=== PATIENT | female | born 1955 | race Caucasian/White ===

== ENCOUNTER 2023-02-28 21:06 | Inpatient (IN) | payer MEDICARE, MEDICAID, SELFPAY ==
[2023-02-28 21:30] VITALS: BP 110/69; PULSE 66; RESP 16; TEMP 36.3; O2SAT 97
[2023-02-28 22:18] VITALS: BMI 20.7
[2023-02-28] MEDS: oxyCODONE HCl Immed Release 5 MG TABLET 20 MG PO (23:05)
[2023-02-28] MEDS: traZODone HCL 50 MG TABLET PO (23:05)
--- NOTE | 2023-02-28 23:54 | PC.ADMIT ---
Pt is a hospital to hospital transfer from [facility]. She arrived on unit via stretcher 02/28/23 at 2115 and signed a CV. Pt was A&O(3), neat in appearance, pleasant and made good eye contact. When asked what brought her here, Pt was reluctant to speak at first but then described problems with her neighbors that were delusional content. She lives in disabled housing and says one couple, former [employer], are not disabled and are the cause of suspicious activity in her kitchen water boils in one cup but not in another . Pt was brought to [facility] d/t calling 911 and others with complaints about her sink. She had delusions that there was a computer or machine in it. Pt has Fibromyalgia and Small Fiber Neuropathy. She was fixated on her pain medications. Pt denies SI/HI. She is a fall risk. Pt stated she has a visiting nurse twice a day. She stated she needs someone to help with house keeping and grocery shopping. pt was given PRN Oxycodone and Trazodone and is sleeping soundly at this time.
[2023-03-01 08:12] VITALS: BP 125/71; PULSE 115; RESP 26; TEMP 36.5; O2SAT 99
[2023-03-01] MEDS: Gabapentin 600 MG TABLET PO ×4 (08:24→22:35)
[2023-03-01] MEDS: Omeprazole 20 MG CAPSULE.DR PO (08:24)
[2023-03-01] MEDS: Morphine Sulfate ER 30 MG TABLET.ER PO ×4 (08:24→22:35)
[2023-03-01] MEDS: DULoxetine HCl 30 MG CAPSULE.DR PO ×2 (08:24→22:36)
[2023-03-01] MEDS: Cyanocobalamin (Vitamin B-12) 100 MCG TABLET PO (08:24)
[2023-03-01] MEDS: oxyCODONE HCl Immed Release 5 MG TABLET 20 MG PO ×4 (08:26→22:36)
[2023-03-01 08:31] LABS: Alanine Aminotransferase 12 U/L (0-31); Albumin Level 4.3 g/dL (3.5-5.0); Alkaline Phosphatase 75 U/L (39-117); Anion Gap 15 (12-20); Aspartate Amino Transferase 15 U/L (5-31); Bilirubin Total 0.5 mg/dL (0.0-1.0); Blood Urea Nitrogen 8 mg/dL (9-16); Calcium 10.1 mg/dL (8.4-10.2); Carbon Dioxide 22 mmol/L (22-29); Chloride 111 mmol/L (96-108); Cholesterol 205 mg/dL; Creatinine Clr Calc Pharmacy 55.2; Estimated Glomerular Filt Rate > 60; Glucose Fasting 128 mg/dL (60-99); HDL Cholesterol 71 mg/dL; LDL Cholesterol Calculated 119 mg/dl; Sodium 144 mmol/L (135-145); Total Protein 6.9 g/dL (6.5-8.0); Triglycerides 75 mg/dL
--- NOTE | 2023-03-01 11:56 | P.HPPS_ITS ---
[facility] Date of Service: 03/01/23 Chief Complaint: Delusional Disorder Sources of Information: patient interviewed, chart reviewed and crisis/core team assessment reviewed HPI Subjective Notes: Neri Warning and Conditional Voluntary Narrative: The patient is a 67-year-old female, born and raised in [place], , mother of adult children, living alone in her own apartment with good social support referred from [facility] for psychosis. According to the crisis assessment, the patient had been calling 911 and other several institutions stating that her apartment has machines and talk things the other hurting her. She was assessed in the emergency room, medically cleared and assessed by the crisis team and transferring to this facility for psychiatric stabilization. On arrival, the patient signed a conditional voluntary and she was willing to follow treatment here. On intake, the patient adamantly denies auditory hallucinations and she states that she has been living on her apartment for the last 17 years. She stated that the building has changed ownership and she is sure that the new order wants to kicked her out. The patient have had several stressors in the last year such as the suicide of her , losing a child and other stressors. Also the patient has several medical problems such as fibromyalgia and chronic pain and she has Detrol headache opiate dependence. She was able to articulate in a circumstantial manner, how she is sure that she has been targeted to make her feel sick. She was able to contract for safety in the facility she, she adamantly denies suicidal ideation and she was able to provide us permission to contact her son. Understood Neri warning and she is willing to follow treatment. At the moment of the intake, the patient refused any changes in her current medications, according to her, she had been taking this huge amount of opioids and mood stabilizers for years. Past Psychiatric History: The patient follows an outpatient therapist but apparently she has prior admissions into the hospital for suicidality in the context of her losses. The patient refused to elaborate in detail. Medical Evaluation Reviewed: Yes PMF Narrative: Fibromyalgia Pre diabetes Small fiber neuropathy Family History: She had a daughter that committed suicide at age of 29, also her committed suicide. Social History: She is a , she was born and raised in [place] immigrated to the [place] and she had work when she was younger. She is mother of several children, she lives alone independently and she has good social support by the family around her. Substance History: Denies Trauma History: Denies Diagnostics Vital Signs (24Hr): Vital Signs - 24 hr 02/28/23 21:30 03/01/23 08:12 Temperature 97.4 F 97.7 F Pulse Rate 66 115 H Respiratory Rate 16 26 H Blood Pressure 110/69 125/71 Pulse Oximetry 97 99 Oxygen Delivery Method Room Air Room Air BMI result Body Mass Index 20.7 Labs 03/01/23 08:04 Labs: Laboratory Results - last 48 hr 03/01/23 08:04 Sodium 144 Potassium 4.0 Chloride 111 H Carbon Dioxide 22 Anion Gap 15 BUN 8 L Creatinine 0.71 Estim Creat Clear Calc 55.2 Estimated GFR > 60 Fasting Glucose 128 H Calcium 10.1 Total Bilirubin 0.5 AST 15 ALT 12 Alkaline Phosphatase 75 Total Protein 6.9 Albumin 4.3 Triglycerides 75 Cholesterol 205 LDL Cholesterol, Calc 119 HDL Cholesterol 71 Meds/Allergies Meds Home Medications Medication Instructions Recorded Confirmed Type cyanocobalamin (vitamin B-12) 100 mcg DAILY 02/28/23 02/28/23 History duloxetine 30 mg capsule,delayed 30 mg PO BID 02/28/23 02/28/23 History release gabapentin 600 mg tablet 600 mg PO 6XD 02/28/23 03/01/23 History hydrocortisone 2.5 % topical cream topical BID 02/28/23 History morphine 30 mg tablet,extended 30 mg PO Q6H 02/28/23 02/28/23 History release oxycodone 20 mg tablet 20 mg PO Q6-8H PRN Pain, Severe 02/28/23 03/01/23 History pantoprazole 40 mg tablet,delayed 40 mg PO DAILY 02/28/23 02/28/23 History release Allergies Allergies Allergy/AdvReac Type Severity Reaction Status Date / Time No Known Allergies Allergy Verified 02/28/23 22:19 Mental Status Exam Mental Status Exam Patient Appearance: Well Grooomed and Appropriate Patient Orientation: Person and Situation Level of Consciousness: Awake and Appropriate Patient Behavior: Appropriate and Cooperative Mood Description: Calm Affect Description: Constricted Patient Cognition Impaired: Yes Ability to Follow Directions: Good Speech Pattern: Clear Hallucinations: None Delusions: Not Present Thought Process: Linear Thought Content: positive for Intact Judgement: Fair Assessment & Plan Assessment & Plan (1) Delusional disorder: Status: Acute Code(s): F22 - Delusional disorders (2) Opiate dependence: Status: Acute Code(s): F11.20 - Opioid dependence, uncomplicated (3) Fibromyalgia: Status: Acute Code(s): M79.7 - Fibromyalgia Plan The patient is an elderly female, from [place], with good social support, with a prior history of dysphoria and prior admissions into the hospital for mood disorder, admitted for the elusive thought process regarding her apartment and the landlord that wants to evict her. Plan 1. Gather collateral information. 2. Continue with pain management. Opioids were confirmed by the pharmacy she has been taking this for several years. 3. Follow-up with medical workout. 4. Reassessment with results. 5. We will not start an antipsychotic at this moment until we confirm if her story is delusional Patient educated on: diagnosis Guardian/Caregiver educated on: therapeutic strategies Reason for continued inpatient stay Substantial Risk for: inability to function, rapid decompensation and med/psych decompensation Statement Statement: I have reviewed the history and physical and performed a pertinent examination on my patient. No changes have occurred unless specified. If the History and Physical was not performed prior to admission, the Hospitalist's service will be consulted for completing the admission physical. Time Spent With Patient Time: Total time managing care of this patient today _45___ minutes.
--- NOTE | 2023-03-01 15:40 | P.CONHOSP_ITS ---
History of Present Illness Data of Consult Service Date: 03/01/23 Primary Care Provider: Unknown Physician HPI Reason for consult: Admission H&P Pt is a 67-year-old female with a PMH significant for?fibromyalgia and small fiber neuropathy who is admitted to [facility] for paranoia, believing there was a machine or computer in her sink and repeatedly calling 911 about it. Medical consult for admission H&P. Pt primarily complains of her small fiber neuropathy which she describes as being sensitive to everything, including her environment. Pt reports her neruopathy causes constant burning pain for which she is on chronic opioids for the past 20-25 years. Also complains of chronic back pain. No acute medical complaints. Review of Systems Review of Systems: Chronic back pain Chronic neuropathic pain Denies all other acute medical complaints PMFSH Social History Household Members: None Housing: Apartment Do you presently have visiting nurse or other home services: Yes (2 visits qday) Patient Tobacco Use Status: Never used Tobacco Smoked in Last 30 Days: No e-Cigarette/Vaping Use: Never Used Patient Interested in Nicotine Replacement: No Patient Given Instructions on How to Stop Smoking: No Second Hand Smoke Exposure: No Use of substances other than those prescribed or required for medical reasons: No Currently Displaying Signs/Symptoms of Drug Intoxication Withdrawal: No Any prior treatment program specific to substance use: No Have you been hit, kicked, punched, or otherwise hurt by someone within the past year? If so, by whom?: No Do you feel safe in your current relationship?: No Is there a partner from a previous relationship who is making you feel unsafe now?: No Are you made to feel afraid or neglected: No Advance Directives: No Advance Directives Information Provided: No Do you have thoughts of harming others: None Do you have a plan to hurt others: No Plan Recently lost weight without trying: No Nutrition Risks: No Nutritional Risk Patient : No : No Poor oral hygiene: No service: No Sexual orientation: Straight/Heterosexual Meds Allergies Allergy/AdvReac Type Severity Reaction Status Date / Time No Known Allergies Allergy Verified 02/28/23 22:19 Active Medications: Current Medications Acetaminophen (Acetaminophen 325 Mg Tablet) 650 mg PO Q6H PRN PRN Reason: Headache/Pain Mild Scale (1-3) Al Hydroxide/Mg Hydroxide (Magnesium Hydrox/Alum Hydrox 30 Ml Oral.Susp) 30 ml PO Q6H PRN PRN Reason: Heartburn/Nausea Cyanocobalamin (Cyanocobalamin (Vitamin B-12) 100 Mcg Tablet) 100 mcg PO DAILY [facility] Last Admin: 03/01/23 08:24 Dose: 100 mcg Duloxetine HCl (Duloxetine Hcl 30 Mg Capsule.) 30 mg PO BID [facility] Last Admin: 03/01/23 08:24 Dose: 30 mg Gabapentin (Gabapentin 600 Mg Tablet) 600 mg PO Q6H [facility] Hydroxyzine HCl (Hydroxyzine Hcl 25 Mg Tablet) 25 mg PO Q6H PRN PRN Reason: Anxiety Magnesium Hydroxide (Milk Of Magnesia 30 Ml Oral.Susp) 30 ml PO DAILY PRN PRN Reason: Constipation Morphine Sulfate (Morphine Sulfate Er 30 Mg Tablet.Er) 30 mg PO Q6H [facility] Last Admin: 03/01/23 12:06 Dose: 30 mg Omeprazole (Omeprazole 20 Mg Capsule.) 20 mg PO DAILY [facility] Last Admin: 03/01/23 08:24 Dose: 20 mg Oxycodone HCl (Oxycodone Hcl Immed Release 5 Mg Tablet) 20 mg PO Q6H PRN PRN Reason: Pain, Severe Last Admin: 03/01/23 13:21 Dose: 20 mg Trazodone HCl (Trazodone Hcl 50 Mg Tablet) 50 mg PO BEDTIME MRX1 PRN PRN Reason: Insomnia Last Admin: 02/28/23 23:05 Dose: 50 mg Home Medications Medication Instructions Recorded Confirmed Last Taken Type cyanocobalamin (vitamin B-12) 100 mcg DAILY 02/28/23 02/28/23 Unknown History duloxetine 30 mg capsule,delayed 30 mg PO BID 02/28/23 02/28/23 02/28/23 08:36 History release gabapentin 600 mg tablet 600 mg PO 6XD 02/28/23 03/01/23 03/01/23 History hydrocortisone 2.5 % topical cream topical BID 02/28/23 Unknown History morphine 30 mg tablet,extended 30 mg PO Q6H 02/28/23 02/28/23 02/28/23 17:35 History release oxycodone 20 mg tablet 20 mg PO Q6-8H PRN Pain, Severe 02/28/23 03/01/23 03/01/23 History pantoprazole 40 mg tablet,delayed 40 mg PO DAILY 02/28/23 02/28/23 02/28/23 05:55 History release Physical Exam Vital Signs and Narrative: Vital Signs: Last Vital Signs Temp 97.7 F 03/01/23 08:12 Pulse 115 H 03/01/23 08:12 Resp 26 H 03/01/23 08:12 BP 125/71 03/01/23 08:12 Pulse Ox 99 03/01/23 08:12 O2 Del Method Room Air 03/01/23 08:12 BMI result Body Mass Index 20.7 General: AOx3, no acute distress Resp: CTA bilaterally CVS: S1, S2, RRR GI: +BS, NT, no distention Skin: No rash Neuro: Cranial nerves II-XII grossly intact bilaterally. Motor grossly intact bilaterally. Left-sided decrease to sensation. Extremities: No edema Psych: Appropriate affect Results Labs 03/01/23 08:04 Labs: Laboratory Results - last 24 hr 03/01/23 08:04 Anion Gap 15 Estim Creat Clear Calc 55.2 Estimated GFR > 60 Fasting Glucose 128 H Calcium 10.1 Total Bilirubin 0.5 AST 15 ALT 12 Alkaline Phosphatase 75 Total Protein 6.9 Albumin 4.3 Triglycerides 75 Cholesterol 205 LDL Cholesterol, Calc 119 HDL Cholesterol 71 Assessment and Plan (1) Routine history and physical examination of adult: Status: Acute Plan Pt is a 67-year-old female with a PMH significant for?fibromyalgia and small fiber neuropathy who is admitted to [facility] for paranoia, believing there was a machine or computer in her sink and repeatedly calling 911 about it. Medical consult for admission H&P. Mood disorder Plan as per psychiatry Fibromyalgia/small fiber neuropathy Continue gabapentin Continue chronic opioids GERD Continue PPI Thank you for allowing us to participate in the care of this patient. Signing off at this time. Please let us know if there are any acute complaints or questions. Time Spent With Patient Time: Total time managing care of this patient today ____ minutes.
[2023-03-01 18:00] VITALS: BP 108/56; PULSE 100; RESP 14; TEMP 36.9; O2SAT 95
[2023-03-02] MEDS: Gabapentin 600 MG TABLET PO ×4 (04:51→22:46)
[2023-03-02] MEDS: Morphine Sulfate ER 30 MG TABLET.ER PO ×4 (04:51→22:45)
[2023-03-02] MEDS: oxyCODONE HCl Immed Release 5 MG TABLET 20 MG PO ×4 (06:08→22:42)
[2023-03-02 08:40] VITALS: BP 149/75; PULSE 116; RESP 18; TEMP 36.8; O2SAT 97
[2023-03-02] MEDS: DULoxetine HCl 30 MG CAPSULE.DR PO (08:44)
[2023-03-02] MEDS: Cyanocobalamin (Vitamin B-12) 100 MCG TABLET PO (08:44)
[2023-03-02] MEDS: Omeprazole 20 MG CAPSULE.DR PO (08:44)
[2023-03-02 18:00] VITALS: BP 108/80; PULSE 86; RESP 16; TEMP 36.3; O2SAT 96
--- NOTE | 2023-03-02 18:12 | P.PNPSI_ITS ---
Subjective Subjective Date of Service: 03/02/23 Reason For Visit: Delusional Disorder Interim History: Pt seen, discussed with team Active in discussion about her medical issues, small fiber neuropathy, her med regime and what works best for her. Discussed feeling upset that no one was be lieving her concerns about her sink. She reports feeling badly that no one even looked to make sure thing were in working order, just assumed I am crazy . Upset her son does not believe her. Empathized with her room-mate with her situation, stating, that as an older person, they just want to have you put away. Presents as connected to milieu and to peers on the unit. No changes are being made today. Medication Compliance: Yes Side effects from medications: No Attending Groups: Yes Review of Systems Acute medical concerns: No Medical Review of Systems: unchanged Mental Status Exam Mental Status Exam Patient Appearance: Appropriate Patient Orientation: Person, Place and Situation Level of Consciousness: Alert Patient Behavior: Talkative, Cooperative and Good Eye Contact Mood Description: Sad Affect Description: Flat Patient Cognition Impaired: No Ability to Follow Directions: Fair Speech Pattern: Spontaneous Speech Memory Description: Episodic Impaired Delusions: Paranoid Ideation and Present Perceptual Disturbances: Derealization Thought Process: Rumination Thought Content: positive for Perseveration Depressive Symptoms: Unhappiness Judgement: Poor Diagnostics Vital Signs (24Hr): Vital Signs - 24 hr 03/02/23 08:40 Temperature 98.2 F Pulse Rate 116 H Respiratory Rate 18 Blood Pressure 149/75 H Pulse Oximetry 97 Oxygen Delivery Method Room Air BMI result Body Mass Index 20.7 Labs 03/01/23 08:04 Labs: Laboratory Results - last 48 hr 03/01/23 08:04 Sodium 144 Potassium 4.0 Chloride 111 H Carbon Dioxide 22 Anion Gap 15 BUN 8 L Creatinine 0.71 Estim Creat Clear Calc 55.2 Estimated GFR > 60 Fasting Glucose 128 H Calcium 10.1 Total Bilirubin 0.5 AST 15 ALT 12 Alkaline Phosphatase 75 Total Protein 6.9 Albumin 4.3 Triglycerides 75 Cholesterol 205 LDL Cholesterol, Calc 119 HDL Cholesterol 71 Medications Medications Current Medications Acetaminophen (Acetaminophen 325 Mg Tablet) 650 mg PO Q6H PRN PRN Reason: Headache/Pain Mild Scale (1-3) Al Hydroxide/Mg Hydroxide (Magnesium Hydrox/Alum Hydrox 30 Ml Oral.Susp) 30 ml PO Q6H PRN PRN Reason: Heartburn/Nausea Cyanocobalamin (Cyanocobalamin (Vitamin B-12) 100 Mcg Tablet) 100 mcg PO DAILY [facility] Last Admin: 03/02/23 08:44 Dose: 100 mcg Duloxetine HCl (Duloxetine Hcl 30 Mg Capsule.) 30 mg PO BID [facility] Last Admin: 03/02/23 08:44 Dose: 30 mg Gabapentin (Gabapentin 600 Mg Tablet) 600 mg PO Q6H [facility] Last Admin: 03/02/23 17:13 Dose: 600 mg Hydroxyzine HCl (Hydroxyzine Hcl 25 Mg Tablet) 25 mg PO Q6H PRN PRN Reason: Anxiety Magnesium Hydroxide (Milk Of Magnesia 30 Ml Oral.Susp) 30 ml PO DAILY PRN PRN Reason: Constipation Morphine Sulfate (Morphine Sulfate Er 30 Mg Tablet.Er) 30 mg PO Q6H [facility] Last Admin: 03/02/23 17:13 Dose: 30 mg Omeprazole (Omeprazole 20 Mg Capsule.Dr) 20 mg PO DAILY [facility] Last Admin: 03/02/23 08:44 Dose: 20 mg Oxycodone HCl (Oxycodone Hcl Immed Release 5 Mg Tablet) 20 mg PO Q6H PRN PRN Reason: Pain, Severe Last Admin: 03/02/23 17:41 Dose: 20 mg Trazodone HCl (Trazodone Hcl 50 Mg Tablet) 50 mg PO BEDTIME MRX1 PRN PRN Reason: Insomnia Last Admin: 02/28/23 23:05 Dose: 50 mg Allergies Allergies Allergy/AdvReac Type Severity Reaction Status Date / Time No Known Allergies Allergy Verified 02/28/23 22:19 Assessment & Plan Assessment & Plan (1) Delusional disorder: Status: Acute Code(s): F22 - Delusional disorders Assessment and Plan: 03/02/23: Continue current regime and plan of care. (2) Opiate dependence: Status: Acute Code(s): F11.20 - Opioid dependence, uncomplicated Plan Pt is a 67-year-old female with a PMH significant for?fibromyalgia and small fiber neuropathy who is admitted to [facility] for paranoia, believing there was a machine or computer in her sink and repeatedly calling 911 about it. Medical consult for admission H&P. Mood disorder Plan as per psychiatry Fibromyalgia/small fiber neuropathy Continue gabapentin Continue chronic opioids GERD Continue PPI Thank you for allowing us to participate in the care of this patient. Signing off at this time. Please let us know if there are any acute complaints or questions. Reason for continued inpatient stay Substantial Risk for: rapid decompensation Time Spent With Patient Time: Total time managing care of this patient today ____ minutes.
[2023-03-03] MEDS: Morphine Sulfate ER 30 MG TABLET.ER PO ×4 (05:14→22:32)
[2023-03-03] MEDS: Gabapentin 600 MG TABLET PO ×4 (05:15→22:32)
[2023-03-03] MEDS: oxyCODONE HCl Immed Release 5 MG TABLET 20 MG PO ×4 (05:20→22:29)
[2023-03-03 08:00] VITALS: BP 90/64; BP 99/56; PULSE 80; PULSE 84; RESP 20; TEMP 36.8; O2SAT 99
[2023-03-03] MEDS: Omeprazole 20 MG CAPSULE.DR PO (08:02)
[2023-03-03] MEDS: Cyanocobalamin (Vitamin B-12) 100 MCG TABLET PO (08:02)
[2023-03-03] MEDS: DULoxetine HCl 30 MG CAPSULE.DR PO ×2 (08:03→22:31)
--- NOTE | 2023-03-03 13:49 | HO.PSYCHPN ---
Subjective Subjective Date of Service: 03/03/23 Reason For Visit: Delusional Disorder Interim History: Pt seen, discussed with team. Visable in milieu, with room-mate, discussing her current situation Tells team, pain today has increased, was requesting pain mgt regime to be repeated two hours after she received this today. Pt has had two groups of pain meds and appears more comfortable when seen Medication Compliance: Yes Side effects from medications: No Attending Groups: Yes Review of Systems Acute medical concerns: No Medical Review of Systems: unchanged Mental Status Exam Mental Status Exam Patient Appearance: Appropriate Patient Orientation: Person, Place and Situation Level of Consciousness: Alert Patient Behavior: Talkative, Cooperative and Good Eye Contact Mood Description: Sad Affect Description: Flat Patient Cognition Impaired: No Ability to Follow Directions: Fair Speech Pattern: Spontaneous Speech Memory Description: Episodic Impaired Delusions: Paranoid Ideation and Present Perceptual Disturbances: Derealization Thought Process: Rumination Thought Content: positive for Perseveration Depressive Symptoms: Unhappiness Judgement: Poor Diagnostics Vital Signs (24Hr): Vital Signs - 24 hr 03/02/23 18:00 03/03/23 08:00 03/03/23 08:00 Temperature 97.4 F 98.2 F Pulse Rate 86 80 84 Respiratory Rate 16 20 Blood Pressure 108/80 99/56 L 90/64 Pulse Oximetry 96 99 Oxygen Delivery Method Room Air Room Air BMI result Body Mass Index 20.7 Labs 03/01/23 08:04 Medications Medications Current Medications Acetaminophen (Acetaminophen 325 Mg Tablet) 650 mg PO Q6H PRN PRN Reason: Headache/Pain Mild Scale (1-3) Al Hydroxide/Mg Hydroxide (Magnesium Hydrox/Alum Hydrox 30 Ml Oral.Susp) 30 ml PO Q6H PRN PRN Reason: Heartburn/Nausea Cyanocobalamin (Cyanocobalamin (Vitamin B-12) 100 Mcg Tablet) 100 mcg PO DAILY [facility] Last Admin: 03/03/23 08:02 Dose: 100 mcg Duloxetine HCl (Duloxetine Hcl 30 Mg Capsule.Dr) 30 mg PO BID [facility] Last Admin: 03/03/23 08:03 Dose: 30 mg Gabapentin (Gabapentin 600 Mg Tablet) 600 mg PO Q6H [facility] Last Admin: 03/03/23 11:28 Dose: 600 mg Hydroxyzine HCl (Hydroxyzine Hcl 25 Mg Tablet) 25 mg PO Q6H PRN PRN Reason: Anxiety Magnesium Hydroxide (Milk Of Magnesia 30 Ml Oral.Susp) 30 ml PO DAILY PRN PRN Reason: Constipation Morphine Sulfate (Morphine Sulfate Er 30 Mg Tablet.Er) 30 mg PO Q6H [facility] Last Admin: 03/03/23 11:28 Dose: 30 mg Omeprazole (Omeprazole 20 Mg Capsule.Dr) 20 mg PO DAILY [facility] Last Admin: 03/03/23 08:02 Dose: 20 mg Oxycodone HCl (Oxycodone Hcl Immed Release 5 Mg Tablet) 20 mg PO Q6H PRN PRN Reason: Pain, Severe Last Admin: 03/03/23 11:29 Dose: 20 mg Trazodone HCl (Trazodone Hcl 50 Mg Tablet) 50 mg PO BEDTIME MRX1 PRN PRN Reason: Insomnia Last Admin: 02/28/23 23:05 Dose: 50 mg Allergies Allergies Allergy/AdvReac Type Severity Reaction Status Date / Time No Known Allergies Allergy Verified 02/28/23 22:19 Assessment & Plan Assessment & Plan (1) Delusional disorder: Status: Acute Code(s): F22 - Delusional disorders Assessment and Plan: 03/02/23: Continue current regime and plan of care. 03/03/23 Continue current regime and plan of care (2) Opiate dependence: Status: Acute Code(s): F11.20 - Opioid dependence, uncomplicated Plan Pt is a 67-year-old female with a PMH significant for?fibromyalgia and small fiber neuropathy who is admitted to [facility] for paranoia, believing there was a machine or computer in her sink and repeatedly calling 911 about it. Medical consult for admission H&P. Mood disorder Plan as per psychiatry Fibromyalgia/small fiber neuropathy Continue gabapentin Continue chronic opioids GERD Continue PPI Thank you for allowing us to participate in the care of this patient. Signing off at this time. Please let us know if there are any acute complaints or questions. Informed Consent: further education needed Reason for continued inpatient stay Substantial Risk for: rapid decompensation Time Spent With Patient Time: Total time managing care of this patient today ____ minutes.
[2023-03-03 18:00] VITALS: BP 131/69; PULSE 81; RESP 20; TEMP 36; O2SAT 99
[2023-03-04] MEDS: oxyCODONE HCl Immed Release 5 MG TABLET 20 MG PO ×4 (05:02→22:07)
[2023-03-04] MEDS: Morphine Sulfate ER 30 MG TABLET.ER PO ×4 (05:03→22:08)
[2023-03-04] MEDS: Gabapentin 600 MG TABLET PO ×4 (05:04→22:08)
[2023-03-04 08:05] VITALS: BP 103/56; PULSE 80; RESP 16; TEMP 36.6; O2SAT 98
[2023-03-04] MEDS: Cyanocobalamin (Vitamin B-12) 100 MCG TABLET PO (08:12)
[2023-03-04] MEDS: DULoxetine HCl 30 MG CAPSULE.DR PO (08:12)
[2023-03-04] MEDS: Omeprazole 20 MG CAPSULE.DR PO (08:12)
[2023-03-04] MEDS: Trolamine Salicylate 10 % Cream 85 GM TUBE 1 APPL TOPICAL (12:15)
--- NOTE | 2023-03-04 15:01 | P.PNPSI_ITS ---
Subjective Subjective Date of Service: 03/04/23 Reason For Visit: Delusional Disorder Subjective Notes: Conditional Voluntary Interim History: The nursing staff reported the patient had been compliant with treatment. She is very worried about her pain management and she had been most of the time seclusive in her room. The social media marketer will try to contact collateral information today. On interview the patient denies new symptoms she is worried about her housing situation. Mental Status Exam Mental Status Exam Patient Appearance: Well Grooomed and Appropriate Patient Orientation: Person and Situation Level of Consciousness: Awake and Appropriate Patient Behavior: Guarded and Passive Mood Description: Withdrawn Affect Description: Constricted Patient Cognition Impaired: Yes Ability to Follow Directions: Good Speech Pattern: Clear Hallucinations: None Delusions: Paranoid Ideation Thought Process: Distracted and Slowed Thinking Thought Content: positive for [place] and positive for [place] of Content Judgement: Fair Diagnostics Vital Signs (24Hr): Vital Signs - 24 hr 03/03/23 18:00 03/04/23 08:05 Temperature 96.8 F 97.9 F Pulse Rate 81 80 Respiratory Rate 20 16 Blood Pressure 131/69 103/56 L Pulse Oximetry 99 98 Oxygen Delivery Method Room Air Room Air BMI result Body Mass Index 20.7 Labs 03/01/23 08:04 Medications Medications Current Medications Acetaminophen (Acetaminophen 325 Mg Tablet) 650 mg PO Q6H PRN PRN Reason: Headache/Pain Mild Scale (1-3) Al Hydroxide/Mg Hydroxide (Magnesium Hydrox/Alum Hydrox 30 Ml Oral.Susp) 30 ml PO Q6H PRN PRN Reason: Heartburn/Nausea Cyanocobalamin (Cyanocobalamin (Vitamin B-12) 100 Mcg Tablet) 100 mcg PO DAILY [facility] Last Admin: 03/04/23 08:12 Dose: 100 mcg Duloxetine HCl (Duloxetine Hcl 30 Mg Capsule.Dr) 30 mg PO BID [facility] Last Admin: 03/04/23 08:12 Dose: 30 mg Gabapentin (Gabapentin 600 Mg Tablet) 600 mg PO Q6H [facility] Last Admin: 03/04/23 11:10 Dose: 600 mg Hydroxyzine HCl (Hydroxyzine Hcl 25 Mg Tablet) 25 mg PO Q6H PRN PRN Reason: Anxiety Magnesium Hydroxide (Milk Of Magnesia 30 Ml Oral.Susp) 30 ml PO DAILY PRN PRN Reason: Constipation Morphine Sulfate (Morphine Sulfate Er 30 Mg Tablet.Er) 30 mg PO Q6H [facility] Last Admin: 03/04/23 11:10 Dose: 30 mg Omeprazole (Omeprazole 20 Mg Capsule.Dr) 20 mg PO DAILY [facility] Last Admin: 03/04/23 08:12 Dose: 20 mg Oxycodone HCl (Oxycodone Hcl Immed Release 5 Mg Tablet) 20 mg PO Q6H PRN PRN Reason: Pain, Severe Last Admin: 03/04/23 11:09 Dose: 20 mg Trazodone HCl (Trazodone Hcl 50 Mg Tablet) 50 mg PO BEDTIME MRX1 PRN PRN Reason: Insomnia Last Admin: 02/28/23 23:05 Dose: 50 mg Trolamine Salicylate (Trolamine Salicylate 10 % Cream 85 Gm Tube) 1 appl TOPICAL QID PRN; Protocol PRN Reason: Pain, Moderate(Pain Scale 4-6) Last Admin: 03/04/23 12:15 Dose: 1 appl Allergies Allergies Allergy/AdvReac Type Severity Reaction Status Date / Time No Known Allergies Allergy Verified 02/28/23 22:19 Assessment & Plan Assessment & Plan (1) Delusional disorder: Status: Acute Code(s): F22 - Delusional disorders Assessment and Plan: 03/02/23: Continue current regime and plan of care. 03/03/23 Continue current regime and plan of care (2) Opiate dependence: Status: Acute Code(s): F11.20 - Opioid dependence, uncomplicated Plan Pt is a 67-year-old female with a PMH significant for?fibromyalgia and small fiber neuropathy who is admitted to [facility] for paranoia, believing there was a machine or computer in her sink and repeatedly calling 911 about it. Medical consult for admission H&P. Mood disorder Plan as per psychiatry Fibromyalgia/small fiber neuropathy Continue gabapentin Continue chronic opioids GERD Continue PPI Plan 1. Gather collateral information. 2. Continue with pain management as prescribed. 3. I offer an increase of Cymbalta and she agreed on it, no evidence of delusional thinking so far. Reason for continued inpatient stay Substantial Risk for: inability to function, rapid decompensation and med/psych decompensation Time Spent With Patient Time: Total time managing care of this patient today ____ minutes.
[2023-03-04 18:00] VITALS: BP 115/58; PULSE 82; RESP 16; TEMP 36.1; O2SAT 96
[2023-03-04] MEDS: DULoxetine HCl 20 MG CAPSULE.DR 40 MG PO (22:08)
[2023-03-05] MEDS: oxyCODONE HCl Immed Release 5 MG TABLET 20 MG PO ×4 (05:17→23:43)
[2023-03-05] MEDS: Morphine Sulfate ER 30 MG TABLET.ER PO ×4 (05:18→23:58)
[2023-03-05] MEDS: Gabapentin 600 MG TABLET PO ×4 (05:18→23:43)
[2023-03-05 08:37] VITALS: BP 113/55; PULSE 88; RESP 16; TEMP 36.7; O2SAT 95
[2023-03-05] MEDS: Cyanocobalamin (Vitamin B-12) 100 MCG TABLET PO (08:40)
[2023-03-05] MEDS: Omeprazole 20 MG CAPSULE.DR PO (08:40)
[2023-03-05] MEDS: DULoxetine HCl 20 MG CAPSULE.DR 40 MG PO (08:40)
[2023-03-05] MEDS: Trolamine Salicylate 10 % Cream 85 GM TUBE 1 APPL TOPICAL (08:43)
--- NOTE | 2023-03-05 13:51 | HO.PSYCHPN ---
Subjective Subjective Date of Service: 03/05/23 Reason For Visit: Delusional Disorder Subjective Notes: Conditional Voluntary Interim History: The nursing staff reported the patient had been perseverative with paranoid delusions stating that they want to take her out of her home. She slept well most of the night. She reported that increased of Cymbalta make him worse. The occupational therapist reported that she has not participate the doll on group activities. The social service worker contact his son and according to his son they have not spoken each other for the last 6 years because due to his delusional thinking. On interview the patient remains delusional stating that they want to hurt her and she had side effects on Cymbalta 40 so we went back to 30. Still using her opioids at high doses but she had been taking this medications for years. Mental Status Exam Mental Status Exam Patient Appearance: Well Grooomed and Appropriate Patient Orientation: Person and Situation Level of Consciousness: Awake and Appropriate Patient Behavior: Guarded and Passive Mood Description: Withdrawn Affect Description: Constricted Patient Cognition Impaired: Yes Ability to Follow Directions: Good Speech Pattern: Clear Hallucinations: None Delusions: Paranoid Ideation Thought Process: Incoherent and Distracted Thought Content: positive for Perseveration Judgement: Poor Diagnostics Vital Signs (24Hr): Vital Signs - 24 hr 03/04/23 18:00 03/05/23 08:37 Temperature 97 F 98.1 F Pulse Rate 82 88 Respiratory Rate 16 16 Blood Pressure 115/58 L 113/55 L Pulse Oximetry 96 95 Oxygen Delivery Method Room Air Room Air BMI result Body Mass Index 20.7 Labs 03/01/23 08:04 Medications Medications Current Medications Acetaminophen (Acetaminophen 325 Mg Tablet) 650 mg PO Q6H PRN PRN Reason: Headache/Pain Mild Scale (1-3) Al Hydroxide/Mg Hydroxide (Magnesium Hydrox/Alum Hydrox 30 Ml Oral.Susp) 30 ml PO Q6H PRN PRN Reason: Heartburn/Nausea Cyanocobalamin (Cyanocobalamin (Vitamin B-12) 100 Mcg Tablet) 100 mcg PO DAILY [facility] Last Admin: 03/05/23 08:40 Dose: 100 mcg Duloxetine HCl (Duloxetine Hcl 30 Mg Capsule.Dr) 30 mg PO BID [facility] Gabapentin (Gabapentin 600 Mg Tablet) 600 mg PO Q6H [facility] Last Admin: 03/05/23 11:07 Dose: 600 mg Hydroxyzine HCl (Hydroxyzine Hcl 25 Mg Tablet) 25 mg PO Q6H PRN PRN Reason: Anxiety Magnesium Hydroxide (Milk Of Magnesia 30 Ml Oral.Susp) 30 ml PO DAILY PRN PRN Reason: Constipation Morphine Sulfate (Morphine Sulfate Er 30 Mg Tablet.Er) 30 mg PO Q6H [facility] Last Admin: 03/05/23 11:07 Dose: 30 mg Omeprazole (Omeprazole 20 Mg Capsule.Dr) 20 mg PO DAILY [facility] Last Admin: 03/05/23 08:40 Dose: 20 mg Oxycodone HCl (Oxycodone Hcl Immed Release 5 Mg Tablet) 20 mg PO Q6H PRN PRN Reason: Pain, Severe Last Admin: 03/05/23 11:07 Dose: 20 mg Trazodone HCl (Trazodone Hcl 50 Mg Tablet) 50 mg PO BEDTIME MRX1 PRN PRN Reason: Insomnia Last Admin: 02/28/23 23:05 Dose: 50 mg Trolamine Salicylate (Trolamine Salicylate 10 % Cream 85 Gm Tube) 1 appl TOPICAL QID PRN; Protocol PRN Reason: Pain, Moderate(Pain Scale 4-6) Last Admin: 03/05/23 08:43 Dose: 1 appl Allergies Allergies Allergy/AdvReac Type Severity Reaction Status Date / Time No Known Allergies Allergy Verified 02/28/23 22:19 Assessment & Plan Assessment & Plan (1) Delusional disorder: Status: Acute Code(s): F22 - Delusional disorders Assessment and Plan: 03/02/23: Continue current regime and plan of care. 03/03/23 Continue current regime and plan of care (2) Opiate dependence: Status: Acute Code(s): F11.20 - Opioid dependence, uncomplicated Plan Pt is a 67-year-old female with a PMH significant for?fibromyalgia and small fiber neuropathy who is admitted to [facility] for paranoia, believing there was a machine or computer in her sink and repeatedly calling 911 about it. Medical consult for admission H&P. Mood disorder Plan as per psychiatry Fibromyalgia/small fiber neuropathy Continue gabapentin Continue chronic opioids GERD Continue PPI Plan 1. Gather collateral information. 2. Continue with pain management as prescribed. 3. I offer an increase of Cymbalta and she agreed on it, but later she complained of side effects so we went back to Cymbalta 30 mg p.o. b.i.d.. 4. I offer her an antipsychotic but she refused at this moment. Even though that she has chronic delusions she is not a danger to self or others. Reason for continued inpatient stay Substantial Risk for: inability to function, rapid decompensation and med/psych decompensation Time Spent With Patient Time: Total time managing care of this patient today _20__ minutes.
[2023-03-05 18:00] VITALS: BP 103/53; PULSE 81; TEMP 36.5; O2SAT 96
[2023-03-05] MEDS: DULoxetine HCl 30 MG CAPSULE.DR PO (23:55)
[2023-03-06] MEDS: Gabapentin 600 MG TABLET PO ×4 (05:20→23:35)
[2023-03-06] MEDS: oxyCODONE HCl Immed Release 5 MG TABLET 20 MG PO ×3 (05:20→21:50)
[2023-03-06 07:20] VITALS: BP 96/54; PULSE 74; RESP 16; TEMP 36.4; O2SAT 97
[2023-03-06] MEDS: Morphine Sulfate ER 30 MG TABLET.ER PO ×3 (08:29→23:31)
[2023-03-06] MEDS: Cyanocobalamin (Vitamin B-12) 100 MCG TABLET PO (08:30)
[2023-03-06] MEDS: Omeprazole 20 MG CAPSULE.DR PO (08:30)
[2023-03-06] MEDS: DULoxetine HCl 30 MG CAPSULE.DR PO ×2 (08:30→21:50)
--- NOTE | 2023-03-06 11:27 | P.PNPSI_ITS ---
Subjective Subjective Date of Service: 03/06/23 Reason For Visit: Delusional Disorder Subjective Notes: Conditional Voluntary Interim History: The nursing staff reported that the patient had been compliant with medications, she ate well and she slept well last night. She adamantly denies having psychotic symptoms and she is paranoid stating that people wants to hurt her her apartment. Today she signed a 3 day notice. The oncology social work reported that her son contact them and they are not in contact due to her chronic delusions but she does not have suicidal, homicidal thoughts or any safety concerns. On interview the patient denies new symptoms, she wants to go home. At this moment she is not a danger to self or others and she can take care of herself. Mental Status Exam Mental Status Exam Patient Appearance: Well Grooomed and Appropriate Patient Orientation: Person, Place and Situation Level of Consciousness: Awake and Appropriate Patient Behavior: Guarded and Passive Mood Description: Calm Affect Description: Constricted Patient Cognition Impaired: Yes Ability to Follow Directions: Good Speech Pattern: Clear Hallucinations: None Delusions: Paranoid Ideation Thought Process: Distracted and Evasive Thought Content: positive for [place] and positive for Circumstantial Judgement: Fair Diagnostics Vital Signs (24Hr): Vital Signs - 24 hr 03/05/23 18:00 03/06/23 07:20 Temperature 97.7 F 97.6 F Pulse Rate 81 74 Respiratory Rate 16 Blood Pressure 103/53 L 96/54 L Pulse Oximetry 96 97 Oxygen Delivery Method Room Air Room Air BMI result Body Mass Index 20.7 Labs 03/01/23 08:04 Medications Medications Current Medications Acetaminophen (Acetaminophen 325 Mg Tablet) 650 mg PO Q6H PRN PRN Reason: Headache/Pain Mild Scale (1-3) Al Hydroxide/Mg Hydroxide (Magnesium Hydrox/Alum Hydrox 30 Ml Oral.Susp) 30 ml PO Q6H PRN PRN Reason: Heartburn/Nausea Cyanocobalamin (Cyanocobalamin (Vitamin B-12) 100 Mcg Tablet) 100 mcg PO DAILY [facility] Last Admin: 03/06/23 08:30 Dose: 100 mcg Duloxetine HCl (Duloxetine Hcl 30 Mg Capsule.Dr) 30 mg PO BID [facility] Last Admin: 03/06/23 08:30 Dose: 30 mg Gabapentin (Gabapentin 600 Mg Tablet) 600 mg PO Q6H [facility] Last Admin: 03/06/23 05:20 Dose: 600 mg Hydroxyzine HCl (Hydroxyzine Hcl 25 Mg Tablet) 25 mg PO Q6H PRN PRN Reason: Anxiety Magnesium Hydroxide (Milk Of Magnesia 30 Ml Oral.Susp) 30 ml PO DAILY PRN PRN Reason: Constipation Morphine Sulfate (Morphine Sulfate Er 30 Mg Tablet.Er) 30 mg PO Q8H [facility] Last Admin: 03/06/23 08:29 Dose: 30 mg Omeprazole (Omeprazole 20 Mg Capsule.Dr) 20 mg PO DAILY [facility] Last Admin: 03/06/23 08:30 Dose: 20 mg Oxycodone HCl (Oxycodone Hcl Immed Release 5 Mg Tablet) 20 mg PO Q6H PRN PRN Reason: Pain, Severe Last Admin: 03/06/23 05:20 Dose: 20 mg Trazodone HCl (Trazodone Hcl 50 Mg Tablet) 50 mg PO BEDTIME MRX1 PRN PRN Reason: Insomnia Last Admin: 02/28/23 23:05 Dose: 50 mg Trolamine Salicylate (Trolamine Salicylate 10 % Cream 85 Gm Tube) 1 appl TOPICAL QID PRN; Protocol PRN Reason: Pain, Moderate(Pain Scale 4-6) Last Admin: 03/05/23 08:43 Dose: 1 appl Allergies Allergies Allergy/AdvReac Type Severity Reaction Status Date / Time No Known Allergies Allergy Verified 02/28/23 22:19 Assessment & Plan Assessment & Plan (1) Delusional disorder: Status: Acute Code(s): F22 - Delusional disorders Assessment and Plan: 03/02/23: Continue current regime and plan of care. 03/03/23 Continue current regime and plan of care (2) Opiate dependence: Status: Acute Code(s): F11.20 - Opioid dependence, uncomplicated Plan Pt is a 67-year-old female with a PMH significant for?fibromyalgia and small fiber neuropathy who is admitted to [facility] for paranoia, believing there was a machine or computer in her sink and repeatedly calling 911 about it. Medical consult for admission H&P. Mood disorder Plan as per psychiatry Fibromyalgia/small fiber neuropathy Continue gabapentin Continue chronic opioids GERD Continue PPI Plan 1. Gather collateral information. 2. Continue with pain management as prescribed. 3. I offer an increase of Cymbalta and she agreed on it, but later she complained of side effects so we went back to Cymbalta 30 mg p.o. b.i.d.. 4. I offer her an antipsychotic but she refused at this moment. Even though that she has chronic delusions she is not a danger to self or others. Reason for continued inpatient stay Substantial Risk for: inability to function, rapid decompensation and med/psych decompensation Time Spent With Patient Time: Total time managing care of this patient today __20__ minutes.
[2023-03-06 21:40] VITALS: BP 97/55; PULSE 66; RESP 16; TEMP 36.3; O2SAT 98
[2023-03-07] MEDS: Gabapentin 600 MG TABLET PO ×2 (05:03→10:56)
[2023-03-07] MEDS: oxyCODONE HCl Immed Release 5 MG TABLET 20 MG PO ×2 (05:04→10:56)
[2023-03-07] MEDS: Cyanocobalamin (Vitamin B-12) 100 MCG TABLET PO (07:53)
[2023-03-07] MEDS: Morphine Sulfate ER 30 MG TABLET.ER PO (07:53)
[2023-03-07] MEDS: Omeprazole 20 MG CAPSULE.DR PO (07:53)
[2023-03-07] MEDS: DULoxetine HCl 30 MG CAPSULE.DR PO (07:53)
[2023-03-07 07:54] VITALS: BP 113/60; PULSE 80; RESP 16; TEMP 36.7; O2SAT 99
--- NOTE | 2023-03-07 08:05 | P.DS_ITS ---
DS: Providers Provider Date of Service: 03/07/23 Date of admission: 02/28/23 21:06 Date of discharge: 03/07/23 Primary care physician: Unknown Physician Attending physician on admission: Tuan Johnson Consults: 02/28/23 22:40 Consult to Hospitalist Routine Comment: Consulting Provider: Hospitalist Reason For Exam: Direct admission Discharging clinician: Tuan Johnson DS: Diagnosis Discharge Diagnosis (1) Delusional disorder: Status: Acute (2) Opiate dependence: Status: Acute DS: Medications Discharge Medications Home Medications: Home Medications Medication Instructions Recorded Confirmed cyanocobalamin (vitamin B-12) 100 mcg DAILY 02/28/23 02/28/23 duloxetine 30 mg capsule,delayed 30 mg PO BID 02/28/23 02/28/23 release gabapentin 600 mg tablet 600 mg PO 6XD 02/28/23 03/01/23 hydrocortisone 2.5 % topical cream topical BID 02/28/23 morphine 30 mg tablet,extended 30 mg PO Q6H 02/28/23 02/28/23 release oxycodone 20 mg tablet 20 mg PO Q6-8H PRN Pain, Severe 02/28/23 03/01/23 pantoprazole 40 mg tablet,delayed 40 mg PO DAILY 02/28/23 02/28/23 release Mental Status Exam Mental Status Exam Patient Appearance: Well Grooomed and Appropriate Patient Orientation: Person and Situation Level of Consciousness: Awake and Appropriate Patient Behavior: Guarded and Cooperative Mood Description: Calm Affect Description: Constricted Patient Cognition Impaired: Yes Ability to Follow Directions: Good Speech Pattern: Clear Hallucinations: None Delusions: Paranoid Ideation Thought Process: Distracted and Evasive Thought Content: positive for [place] and positive for Perseveration Judgement: Fair Data Data Completed and Pending Completed studies during hospitalization [Text1]: 03/01/23 08:04 Sodium 144 Potassium 4.0 Chloride 111 H Carbon Dioxide 22 Anion Gap 15 BUN 8 L Creatinine 0.71 Estim Creat Clear Calc 55.2 Estimated GFR > 60 Fasting Glucose 128 H Calcium 10.1 Total Bilirubin 0.5 AST 15 ALT 12 Alkaline Phosphatase 75 Total Protein 6.9 Albumin 4.3 Triglycerides 75 Cholesterol 205 LDL Cholesterol, Calc 119 HDL Cholesterol 71 DS: Summary Hospital Course Hospital Course: The patient was transferred from [facility] to this facility due to psychosis. The patient is an elderly [place] female, mother of adult children with a prior history of delusional disorder, chronic pain and iatrogenic opiate dependence referred to this facility for continuation of care since the patient had been complaining that her apartment had been bucked with machines and other delusional thoughts. Please see the HPI of the admission note for further details. On admission the patient's and conditional voluntary, she was pleasant and cooperative, she was able to do her own ADLs and she was mostly focused on her pain management. She is taking a very high doses of opioids for several years and the doses were confirmed by the pharmacy. She also complains of other somatic complaints such as allergies, rash and other known related side effects with medications. We decided to continue her on her Cymbalta 30 mg p.o. b.i.d.. I offered antipsychotics but the patient refused to take a. We gather collateral information and apparently Adult protective Services is aware of her case. Even though the patient has been psychotic with delusional statements, she does not have any suicidal or homicidal thoughts or any other safety concerns. We did a cognitive testing and she was mildly cognitively impaired. I offer her anti cholinesterase to target dementia but she refused at this moment. The patient signed a 3 day notice and since there were no safety concerns discharge planning was discussed. We did not have enough criteria for Section 7 and 8 and the use of antipsychotics. Time spent discussing smoking cessation with patient: 3 to 10 minutes Status at Discharge Cognitive/behavioral status at discharge: At baseline Functional status at discharge: independent ambulation Overall status at discharge: patient is back to baseline Time Spent with Patient Time attestation: Total time managing care of this patient today _30___ minutes. Time spent: Less than 30 minutes Discharge Plan Discharge Anticipated Discharge Date/Time: 03/07/23 11:00 Patient Disposition: Home, Self-Care Discharge Diagnosis: Delusional disorder Opiate dependence iatrogenic Mild cognitive impairment Referrals: [facility] [Other] - 03/07/23 (Your [facility] services for medication management will restart on 03/07/23. ) Dr Milka Scales MD [facility] [Other] - 03/19/23 11:15 am (Your next appointment with Dr Scales is scheduled for 03/19/23 at 11:15am. ) Ruby Jett [facility] [Other] - 03/14/23 12:30 pm (Your next in home therapy appointment is scheduled for 03/14/23 at 12:30pm. Your therapist Ruby will contact you by phone for phone check in appointment post discharge on 03/11/23 at 4:45pm. ) [facility] [Other] - 03/07/23 (Your [facility] case management to resume with Rneee and Gladys Schultz at time of discharge. ) Discharge Medications: New trazodone 50 mg Tablet 50 mg PO BEDTIME MRX1 PRN (Reason: Insomnia) 30 Days Qty: 30 0RF trolamine salicylate [Arthricream] 10 % Cream 1 appl topical QID PRN (Reason: Pain, Moderate(Pain Scale 4-6)) 30 Days Qty: 1 0RF Protocol: Apply to: Apply to: affected areas Continued gabapentin 600 mg Tablet 600 mg PO 6XD 30 Days Qty: 180 0RF Rx Instructions: up to 6 Xs a day- takes the 2 additional doses during the night. morphine 30 mg Tablet Extended Release 30 mg PO Q6H 14 Days Qty: 56 0RF pantoprazole 40 mg Tablet,Delayed Release (Dr/Ec) 40 mg PO DAILY 30 Days Qty: 30 0RF duloxetine 30 mg Capsule,Delayed Release(Dr/Ec) 30 mg PO BID 30 Days Qty: 60 0RF oxycodone 20 mg Tablet 20 mg PO Q6-8H PRN (Reason: Pain, Severe) 14 Days Qty: 56 0RF Rx Instructions: Q 6 h Changed hydrocortisone 2.5 % cream 1 appl topical BID 30 Days Qty: 1 0RF cyanocobalamin (vitamin B-12) 100 mcg PO DAILY 30 Days Qty: 30 0RF Discharge Orders: Discharge Order (Routine); Ordered 03/07/23 Ordered By: Tuan Johnson Diet: Advance to usual diet Activity on Discharge: As tolerated Stand Alone Forms: Patient Portal Discharge page Care Plan Goals: Care plan goals were not achieved since the patient refused to take antipsychotics and at this moment she does not represent a risk to self or others. Health Concerns: Continue with primary care physician and other outpatient providers. Plan of Treatment: Continue medication management Assessment: Elderly female with chronic pain, fibromyalgia and other medical comorbidities admitted for delusional disorder. The patient refused to take antipsychotics, the patient does not represent a risk to self or others and she does not have enough criteria for Section 7 and 8. The patient sign a 3 day notice and we are discharging her.
--- NOTE | 2023-03-07 10:58 | PC.NURSE ---
THIS RN ASKED DR. QING LEYVA EXPLICIT PERMISSION, TO BE ABLE TO PROVIDE THIS PT WITH HER PRN OXYCODONE VERY SLIGHTLY EARLY, IN ORDER TO PREPARE FOR HER DISCHARGE. VIA [place], DR. QING LEYVA PROVIDED THIS PERMISSION TO THIS NURSE.
== END 2023-03-07 11:15 | disposition home or self-care (01) | DRG 885 ==
PROVIDERS: Admitting Provider Psychiatry & Neurology Psychiatry; Visit Provider Psychiatry & Neurology Psychiatry
DX: F22 Delusional disorders (principal); F11.20 Opioid dependence, uncomplicated; G62.9 Polyneuropathy, unspecified; G31.84 Mild cognitive impairment of uncertain or unknown etiology; M79.7 Fibromyalgia; Z79.899 Other long term (current) drug therapy
CPT/HCPCS: 36415; 80053; 80061

== ENCOUNTER → 2023-02-28 21:06 | Outpatient (BNV) | payer MEDICARE, MEDICAID, SELFPAY | PROVIDERS: Admitting Provider Psychiatry & Neurology Psychiatry; Visit Provider Psychiatry & Neurology Psychiatry | DX: F22 Delusional disorders (principal); F11.20 Opioid dependence, uncomplicated | CPT/HCPCS: 90792; 99231; 99232; 99238 ==

== ENCOUNTER → 2023-02-28 21:06 | Outpatient (BNV) | payer MEDICARE, MEDICAID, SELFPAY | PROVIDERS: Admitting Provider Psychiatry & Neurology Psychiatry; Visit Provider Student in an Organized Health Care Education/Training Program | DX: M79.7 Fibromyalgia (principal) | CPT/HCPCS: 99221 ==